=== PATIENT | female | born 1975 | race Caucasian/White ===

== ENCOUNTER → 2017-10-22 16:40 | Outpatient (CLI) | payer OTHER, MEDICAID, SELFPAY ==
--- NOTE | 2017-10-22 16:43 | DI.RAD.S_ITS ---
PROCEDURE: XR KNEE RT 3V INDICATIONS: RT KNEE PAIN TECHNIQUE: 3 views of the knee were acquired. COMPARISON: None. FINDINGS: Bones: No fractures or dislocations. No suspicious bony lesions. There is minimal to mild medial femorotibial joint space narrowing seen, with associated remodeling changes including subchondral sclerosis and osteophyte formation along the jointline. On the sunrise view, the patellofemoral joint space is relatively well-preserved. Osteophyte formation can be seen along the margins of the patella. Soft tissues: There is a moderate joint effusion. No suspicious soft tissue calcifications. IMPRESSION: Moderate joint effusion. Dictated by: Ruben Calabrese M.D. on 10/22/2017 at 16:16 Approved by: Ruben Calabrese M.D. on 10/22/2017 at 16:17
== END ==
PROVIDERS: PCP Family Medicine; Visit Provider Nurse Practitioner Family
DX: M25.561 Pain in right knee (principal); M25.461 Effusion, right knee
CPT/HCPCS: 73562

== ENCOUNTER → 2017-11-22 19:20 | Outpatient (CLI) | payer OTHER, MEDICAID, SELFPAY ==
--- NOTE | 2017-11-22 19:21 | DI.MRI.S_ITS ---
PROCEDURE: MR KNEE RT WO CON INDICATIONS: rt knee pain TECHNIQUE: Noncontrast sagittal PD fast spin echo and T2 fast spin echo with fat saturation, sagittal 3-D FLASH with fat saturation; coronal T1 spin echo and PD fast spin echo with fat saturation, and axial PD fast spin echo with fat saturation through the knee. COMPARISON: None. FINDINGS: Image quality: Excellent. Menisci: Minimal blunting of the free margin of the lateral meniscus. There is also truncation of the free margin of the medial meniscus with partial extrusion. Cruciate ligaments: The anterior cruciate ligament appears thickened with intrasubstance signal change suggestive of chronic mucoid degeneration although low-grade age indeterminate ACL sprain is in the differential. Posterior cruciate ligament appears intact. Medial structures: The medial collateral ligament appears intact. The posterior oblique ligament, semimembranosus tendon insertions, oblique popliteal ligament, and meniscocapsular junction appear intact. Visualized portions of the pes anserinus tendons appear normal. No abnormal bursal fluid. Lateral structures: The lateral collateral ligament, long and short heads of the biceps femoris tendon appear intact. The popliteus tendon appears normal; the popliteofibular ligament appears intact. The posterosuperior and anteroinferior popliteomeniscal fascicles appear intact. The arcuate and fabellofibular ligaments appear intact, on either side of the lateral inferior geniculate artery. Iliotibial band appears normal. Anterior structures: The quadriceps and patellar tendons appear intact. There is minimal infrapatellar subcutaneous edema. Patellar alignment is normal. No femoral trochlear dysplasia or ventral trochlear prominence. No edema in the infrapatellar fat pad. Bones and cartilage: No bone marrow contusions or fractures. Within the medial compartment, there is diffuse surface fraying of the femoral and tibial articular cartilage without focal defect. Within the lateral compartment, small focal full-thickness defect involving the central femoral articular cartilage. There is diffuse surface fraying and fibrillation of the central tibial cartilage. Within the patellofemoral compartment, diffuse surface fraying of the cartilage overlying the median patellar ridge and femoral trochlear. Joint space: Small joint effusion. No Riojas's cyst. IMPRESSION: Intrasubstance signal change and thickening of the ACL. The appearance suggests chronic mucoid degeneration although differential includes age-indeterminate low-grade partial ACL rupture. Please correlate to exam findings and history. Blunting of the free margin of the lateral meniscus. Truncation of free margin of the body of the medial meniscus, without definite intrasubstance fluid signal intensity. Please correlate to clinical exam findings. Small joint effusion. Tricompartmental degeneration as above. Mild infrapatellar subcutaneous edema. Dictated by: Jesse Hannah M.D. on 11/23/2017 at 9:03 Approved by: Jesse Hannah M.D. on 11/23/2017 at 9:33
== END ==
PROVIDERS: PCP Family Medicine; Visit Provider Family Medicine
DX: M17.11 Unilateral primary osteoarthritis, right knee (principal); M25.461 Effusion, right knee
CPT/HCPCS: 73721

== ENCOUNTER → 2022-08-03 09:45 | Outpatient (CLI) | payer OTHER, SELFPAY | PROVIDERS: PCP Family Medicine; Referring Provider Physician Assistant; Visit Provider Physician Assistant | DX: R00.2 Palpitations (principal) | CPT/HCPCS: 93242 ==